=== PATIENT | female | born 1945 | race Caucasian/White ===

== ENCOUNTER 2018-07-31 00:32 | Emergency (ER) | payer MEDICARE ==
--- NOTE | 2018-07-31 08:53 | CT ---
PRELIMINARY REPORT/[facility]/EMERGENCY AFTER HOURS PROCEDURE: EXAM: CT Head Without Intravenous Contrast CLINICAL HISTORY: 72 years old, female; Injury / trauma; Fall; tripped while going down stairs, fell backwards onto sta irs. C/O sacral and bilat hip pain. ER staff had to assist pt out of car. TECHNIQUE: Axial computed tomography images of the head/brain without intravenous contrast. COMPARISON: No relevant prior studies available. FINDINGS: Brain: A few scattered small areas of decreased density in the periventricular white matter which are likely secondary to chronic ischemia from microvascular change. Diffuse cerebral atrophy. No mass ef fect or midline shift. No extra-axial fluid collection. No hemorrhage. Ventricles: Ventricular prominence in this patient with diffuse cerebral atrophy. Bones/joints: No acute fracture. Prior right craniotomy. Soft tissues: Right occipital scalp subcutaneous edema. Anterolateral right scalp vertex subcutaneous nodule(s) with calcification. Vasculature: Arterial calcification. Sinuses: No significant disease of the paranasal sinuses. Mastoid air cells: No mastoiditis. IMPRESSION: 1. No acute fracture. 2. Right occipital scalp subcutaneous edema. 3. No acute intracranial findings. Thank you for allowing us to participate in the care of your patient. Dictated and Authenticated by: Kirit Taylor MD 07/31/2018 2:36 AM Central Time ([place] & [place]) FINAL REPORT BRAIN CT WITHOUT IV CONTRAST: EMERGENCY AFTER HOURS EXAM TIME: 1:45 a.m. DATE: 07/31/18. FINDINGS/IMPRESSION: Postoperative changes involving the right frontal bone. Minimal scalp fat stranding in the right occ ipital region. No significant acute intracranial process. POS: [facility]
--- NOTE | 2018-07-31 08:54 | CT ---
PRELIMINARY REPORT/[facility]/EMERGENCY AFTER HOURS PROCEDURE: EXAM: CT Pelvis Without Intravenous Contrast CLINICAL HISTORY: 72 years old, female; Pelvic pain; tripped while going down stairs, fell backwards onto stairs. C/O s acral and bilat hip pain. ER staff had to assist pt out of car. TECHNIQUE: Axial computed tomography images of the pelvis without intravenous contrast. Coronal and sagittal ref ormatted images were created and reviewed. COMPARISON: No relevant prior studies available. FINDINGS: Bones/joints: Acute fracture of the right superior pubic ramus. Acute fracture of the right ischium. Bilateral fracture of the sacrum with adjacent presacral / posterior pelvic hemorrhagic stranding. Minimal retrolisthesis of L5 with respect to L4. No dislocation. Soft tissues: Small fat-containing umbilical hernia. Bladder: Unremarkable. No stones. IMPRESSION: 1. Acute fracture of the right superior pubic ramus. 2. Acute fracture of the right ischium. 3. Bilateral fracture of the sacrum with adjacent presacral / posterior pelvic hemorrhagic stranding. Thank you for allowing us to participate in the care of your patient. Dictated and Authenticated by: Kirit Taylor MD 07/31/2018 2:45 AM Central Time ([place] & [place]) FINAL REPORT PELVIC CT SCAN WITHOUT IV CONTRAST: EMERGENCY AFTER HOURS EXAM TIME: 1:41 a.m. DATE: 07/31/18. FINDINGS/IMPRESSION: Displaced slightly comminuted fractures involving the right inferior ischiopubic ramus, the right sup erior pubic ramus, and both right and left sacral alae regions with displacement and bilateral pelvic hematomas/hemorrhagic changes as well as hemorrhagic changes within the presacral region. POS: [facility]
--- NOTE | 2018-07-31 10:53 | RAD ---
RIGHT HIP 1 VIEW: HISTORY: A 72-year-old female with injury from trauma, fall. FINDINGS: The right femur appears intact on this single view. There are comminuted displaced fractures of the r ight superior and inferior ischiopubic rami as well as a right sacral fracture. IMPRESSION: Pelvic fractures. POS: [facility]
--- NOTE | 2018-07-31 10:54 | RAD ---
LEFT HIP 1 VIEW: HISTORY: A 72-year-old female with a history of injury from trauma. FINDINGS/ IMPRESSION: No fracture or dislocation on this single AP projection. POS: [facility]
--- NOTE | 2018-07-31 11:10 | RAD ---
AP PELVIS 1 VIEW: HISTORY: A 72-year-old female with a history of injury from trauma. FINDINGS: Comminuted displaced fractures of the right superior and inferior ischiopubic rami and right and left sacrum. The femurs appear intact. IMPRESSION: Multiple pelvic fractures. POS: [facility]
== END 2018-07-31 03:45 | disposition home or self-care (01) ==
LOC: SCSER 00:32
DX: S32.591A Other specified fracture of right pubis, initial encounter for closed fracture (principal); S32.10XA Unspecified fracture of sacrum, initial encounter for closed fracture; S32.601A Unspecified fracture of right ischium, initial encounter for closed fracture; S00.93XA Contusion of unspecified part of head, initial encounter; W18.40XA Slipping, tripping and stumbling without falling, unspecified, initial encounter
CPT/HCPCS: 70450; 72170; 72192; 96374; 96376; J2270